=== PATIENT | male | born 1995 | race Two or more races ===

== ENCOUNTER 2016-12-08 21:21 | Emergency (ER) | payer OTHER ==
[~2016-12-08] VITALS: Ht 177.8 cm; Wt 81.8 kg
[2016-12-08 21:29] VITALS: BP 151/95; PULSE 73; RESP 16; O2SAT 97
--- NOTE | 2016-12-08 23:09 | ED.REPORT ---
HPI-Rash / Abscess Date of Service December 08, 2016 ED Provider: Leodan Nelson MD The patient is a 21 year old male who presents to the emergency department complaining of an abscess to his left lateral hand that he first noticed 5 days ago. The area is red and painful. He denies fever, chills, diaphoresis, nausea or vomiting. He has had similar symptoms in the past and has needed to have the areas incised and drained. Nursing Notes Stated Complaint: CYST Chief Complaint: Skin Rash/Abscess Nursing Notes Reviewed: Yes Allergies: Coded Allergies: No Known Allergies (Unverified , 12/08/16) General Time Seen by MD: 23:04 Chief Complaint Abscess, Tender/swollen area Hx Obtained From: Patient Arrived By: Walk-in Onset Occurred: 5 days ago Symptom Duration: Since onset Location: : Hand Quality: Painful Severity: Current: Moderate Severity: Maximum: Pain scale Associated with: Denies Fever, Denies Nausea, Denies Vomiting Pertinent Negative: Pt denies other symptoms Related History: Reports: Prior similar rash Recent Healthcare: No recent doctor visit, No recent hospitalization Similar Sx Previous: Yes Past Medical History Past Medical History Hx of abscesses Family History Noncontributory Smoking History Unknown if Ever Smoker Social History No IV drug use Other Social History: Local resident Ambulatory Status Independent Review of Systems Constitutional: Denies: Chills, Fever GI: Denies: Nausea, Vomiting Musculoskeletal: Reports: Extremity pain Skin: Reports Rash, Reports Swelling, Denies Diaphoresis Complete sys rev & neg: except as marked. Physical Exam Initial Vital Signs Vital Signs (First) Date Time Temp Pulse Resp B/P Pulse Ox O2 Delivery O2 Flow Rate FiO2 12/08/16 21:29 36.4 73 16 151/95 97 Initial VS: Reviewed Head / Eyes: Atraumatic, Normocephalic, PERRL ENT: Mucous membranes moist, Conjunctiva normal, No scleral icterus Neck: Supple, Non-tender, Full range of motion Respiratory: No respiratory distress Extremities: Vascular intact, Neuro intact, No swelling, No tenderness Neurologic: Alert, Oriented, Nonfocal Psychiatric: Mood/affect normal, Behavior normal, Normal thought content General/Constitutional: Awake, Alert, Cooperative Skin: Color NL, Warm, Dry Abscess Notes: There is an abscess to his left lateral hand. Procedures Incision & Drainage Abscess Time: 23:15 Procedure Performed by: ED physician Consent / Setup / Site Prep: Consent from patient, Time-out performed, Hand hygiene observed Location of Abscess: left lateral hand Skin Preparation Agent: Hibiclens - Chlorhexidine Local Anesthesia: Lidocaine 1% Incised Abscess with Scalpel: #11 Pus Drained: Large, Purulent discharge Irrigation: Yes, Copious Post-Procedure / Complications: Dressing applied, No complications, Condition improved, Tolerated procedure well, Patient stable Re-Eval/Medical Decision Source of Hx: Old records Re-Evaluation/Progress : Time of Eval: 23:26 Re-Evaluation/Progress Note: Discussed plan for discharge. All questions were addressed. Counseled Regarding: Diagnosis, Need for follow-up, When/why to return to ED Discharge & Departure Impression: Primary Impression: Abscess Disposition: Home Discharge Condition All VS Reviewed: Yes Condition: Stable Patient Instructions: Abscess Incision and Drainage (DC) Additional Instructions: Thank you for entrusting us with your care today. We incised and drained the abscess on your hand. Make sure to keep the area clean. It is okay to wash the wound but do not soak it. Take the Bactrim as prescribed. You should have the wound rechecked in a few days to make sure it is healing well. Seek care sooner if you develop increased pain, redness or swelling, fever, chills, vomiting, or any other new or concerning symptoms. Referrals: [facility] Scribe Attestation Portions of this note were transcribed by Lela Molina. I, Dr. Nelson personally performed the history, physical exam and medical decision-making; I reviewed and confirmed the accuracy of the information in the transcribed note. Signed by: Andreas Mcfarland, 12/08/2016 at 2345. Leodan Nelson MD December 08, 2016 23:08 Lela Molina December 08, 2016 23:17
[2016-12-08] MEDS ORDERED: _Trimethoprim-Sulfa 160/800 mg Tablet PO SCH (23:30)
[2016-12-08 23:55] VITALS: BP 135/82; PULSE 70; RESP 16; O2SAT 98
== END 2016-12-08 23:56 | disposition home or self-care (01) ==
LOC: SED 21:21
DX: L02.512 Cutaneous abscess of left hand (principal)

== ENCOUNTER 2017-03-27 15:00 | Emergency (ER) | payer OTHER ==
[~2017-03-27] VITALS: Ht 177.8 cm; Wt 72.7 kg
[2017-03-27 15:11] VITALS: BP 128/77; PULSE 63; RESP 20; O2SAT 98
--- NOTE | 2017-03-27 16:40 | ED.REPORT ---
HPI-Extremity Problem Upper Date of Service Mar 27, 2017 ED Provider: Priyank Lazcano PA-C otherwise healthy 21-year-old male patient in emergent problem with a chief complaint of right hand numbness. Patient reports intermittent pins and needles sensation in his right hand as well as pain in his wrist and occasionally elbow. The sensation is distributed to all regions of his hand. States states he often wakes up with the hand feeling numb, also provoked by writing or holding his wrist in flexion at his side while driving. Denies that the hand appears pale. Denies previous injuries, neck pain, weakness. Nursing Notes Stated Complaint: BLOODFLOW IN HAND,LOOSING FEELING IN RIGHT HAND Chief Complaint: Neuro Symptoms/ Deficits Nursing Notes Reviewed: Yes Allergies: Coded Allergies: No Known Allergies (Unverified , 03/27/17) General Time Seen by MD: 16:14 Chief Complaint Wrist injury right Past Medical History Past Medical History Hx of abscesses Family History Noncontributory Smoking History Unknown if Ever Smoker Social History No IV drug use Other Social History: Local resident Ambulatory Status Independent Review of Systems Review of Systems Note: Negative unless stated otherwise in history of present illness Physical Exam General: Well appearing, well developed, well nourished, no acute distress. Right hand: Normal-appearing, nontender, full range of motion in wrist, MCP and PIP and DIP joints. Radial pulse 2+, the hand is warm with brisk capillary refill and sensation present in the distal phalanges. Negative Tinel's, Phalen' s. Right elbow: Normal-appearing, nontender, full range of motion. Head: Atraumatic, normocephalic. Eyes: No scleral icterus or injection. No discharge. Vision grossly intact. ENT: Voice clear, hearing grossly intact. Respiratory: No respiratory distress, no increased work of breathing. Speaks in complete sentences. Skin: Warm and dry. Neurological: Deltoid abduction, wrist flexion and extension, finger flexion and abduction strength 5/5 B/L. Sensation to sharp touch intact over deltoid as well as first, third and fifth digits B/L. Biceps, triceps and brachioradialis reflexes 2+ B/L. otherwise nonfocal. Cranial nerves: Vision grossly intact. Facial motion symmetrical. Voice clear and fluent, no drooling/pooling of saliva. Psychological: alert and oriented. Speech appropriate, linear and logical. Behavior appropriate. Initial Vital Signs Vital Signs (First) Date Time Temp Pulse Resp B/P Pulse Ox O2 Delivery O2 Flow Rate FiO2 03/27/17 15:11 36.3 63 20 128/77 98 Room Air Normal Re-Eval/Medical Decision Med Decision/Clinical Course Otherwise healthy 21-year-old male planning of intermittent right hand numbness , often provoked during sleep or writing. Complains of pins and needles sensation while he distributed over her right hand. Also complains of wrist, occasionally elbow pain. Denies other symptoms. Physical examination is benign with a normal neurological examination, negative Tinel's test, Phalen's test. Negative neck tenderness. No paresthesia in a dermatomal pattern. I discussed the case with Dr. Mary Llanes. We feel is reasonable to treat for carpal tunnel syndrome considering the history of nighttime numbness. Reassured against cervical radiculopathy, CVA/TIA. Provided in-line splint, provided primary care referral. Advised regarding primary care follow-up, provided emergency return precautions. Patient verbalized understanding of, and consent to, the plan. Discharge & Departure Impression: Primary Impression: Right hand paresthesia Disposition: Home Discharge Condition All VS Reviewed: Yes Condition: Stable Additional Instructions: Evaluation for right hand numbness in the emergency department included interview and physical examination, both which are reassuring that this is unlikely because by and immediately dangerous conditions such as an injury to your neck or a stroke. I believe you are stable and safe to go home. We will treat this with a in-line wrist brace. Initially, wear this only at night. If this does not improve your symptoms, start wearing it all the time. The pain is best treated with 500 mg of naproxen (Aleve) every 12 hours, or 1000 mg of acetaminophen (Tylenol) every 6 hours. These drugs can be taken at the same time for more severe pain. If your symptoms are not resolved in about 2 weeks, follow up with a primary care provider. I have provided you with a referral. Return to emergency department for new or worsening symptoms including increasing pain, inability to use the hand. Referrals: Arielle Burton EDSupervising Provider for APC: Александр Serrano DO copies to: Arielle Burton Seth PA-C Mar 27, 2017 16:39
== END 2017-03-27 17:27 | disposition home or self-care (01) ==
LOC: SED 15:00
DX: R20.2 Paresthesia of skin (principal)